=== PATIENT | male | born 1945 | race Caucasian/White ===

== ENCOUNTER 2017-06-02 15:51 | Emergency (ER) | payer OTHER ==
[~2017-06-02] VITALS: Ht 188 cm; Wt 81.6 kg
[2017-06-02 15:54] VITALS: BP_SYST 141
[2017-06-02] MEDS ORDERED: KETOROLAC TROMETHAMINE 60 MG/2 ML VIAL IM ONE (17:30)
[2017-06-02 18:08] VITALS: BP_SYST 138
== END 2017-06-02 18:08 | disposition home or self-care (01) ==
LOC: SED 15:51
DX: D17.9 Benign lipomatous neoplasm, unspecified (principal); G89.29 Other chronic pain; I10 Essential (primary) hypertension; M19.90 Unspecified osteoarthritis, unspecified site; F17.210 Nicotine dependence, cigarettes, uncomplicated; Z86.73 Personal history of transient ischemic attack (TIA), and cerebral infarction without residual deficits
CPT/HCPCS: 96372; 99283; J1885

== ENCOUNTER 2017-06-17 18:40 | Emergency (ER) | payer OTHER ==
[~2017-06-17] VITALS: Ht 185.4 cm; Wt 79.4 kg
[2017-06-17 18:44] VITALS: BP_SYST 125
== END 2017-06-17 19:08 | disposition home or self-care (01) ==
LOC: SED 18:40
DX: Z76.0 Encounter for issue of repeat prescription (principal); I10 Essential (primary) hypertension; M19.90 Unspecified osteoarthritis, unspecified site; Z86.73 Personal history of transient ischemic attack (TIA), and cerebral infarction without residual deficits; Z71.6 Tobacco abuse counseling
CPT/HCPCS: 99283